=== PATIENT | female | born 1980 | race Caucasian/White ===

== ENCOUNTER 2016-10-13 10:08 | Inpatient (IN) | payer BC ==
[~2016-10-13] VITALS: Ht 167.6 cm; Wt 65.0 kg
[2016-10-13 10:17] VITALS: BP 110/70; PULSE 77; RESP 20; TEMP 97.9; O2SAT 99
[2016-10-13] MEDS ORDERED: SODIUM CHLOR 0.9% 1000 ML INJ 1,000 ML IV SCH ×2 (10:24→10:30)
[2016-10-13] MEDS ORDERED: SODIUM CHLORIDE 0.9% FLUSH 5 ML FLUSH IVF PRN (10:30)
[2016-10-13] MEDS ORDERED: ONDANSETRON HCL 4 MG/2 ML VIAL IVP ONE (10:30)
[2016-10-13] MEDS ORDERED: MORPHINE SULFATE 4 MG/ML INJ IV PUSH ONE (10:30)
--- NOTE | 2016-10-13 10:30 | PD ---
HPI Chief Complaint: GI Complaint Time Seen by Provider: 10:19 Travel History International Travel<30 days: No Contact w/Intl Traveler<30days: No Traveled to known affect area: No History of Present Illness HPI This is a 36-year-old female who presents to the emergency department with 3-4 days of malaise, chills, thinking she had the flu, subsequently developing vomiting, copious diarrhea and lower abdominal pain. She says her pain is severe in the lower abdomen, cramping associated with 10 episodes of watery diarrhea yesterday as well as multiple episodes of vomiting. She did have a bladder stimulator put in 9 days ago at [facility]. She denies any dysuria, frequency or urgency and feels like her bladder stimulator is working well. She denies any other abdominal surgeries. 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 Normocephalic. EYES: Pupils equal and round. No injection or drainage. ENT: Dry mucous membranes NECK: Trachea midline. CARDIOVASCULAR: Regular rate and rhythm. No murmur appreciated. RESPIRATORY: Clear to auscultation. Breath sounds equal bilaterally. GASTROINTESTINAL: Abdomen soft, tender to palpation in the lower abdomen with some guarding in the right lower quadrant and suprapubic region. MUSCULOSKELETAL: No obvious deformities. NEUROLOGICAL: Awake and alert. No obvious cranial nerve deficits. Moving all extremities. PSYCHIATRIC: Appropriate mood and affect; insight and judgment normal. Data Data Last Documented VS Vital Signs Date Time Temp Pulse Resp B/P Pulse Ox O2 Delivery O2 Flow Rate FiO2 10/13/16 10:50 20 10/13/16 10:17 97.9 77 110/70 99 Orders Complete Blood Count With Diff (10/13/16 10:24) Comprehensive Metabolic Panel (10/13/16 10:24) Lipase (10/13/16 10:24) Urinalysis - C+S If Indicated (10/13/16 10:24) Ct Abd/Pel W Iv Contrast(Rout) (10/13/16 10:24) Iv Access Insert/Monitor (10/13/16 10:24) Ecg Monitoring (10/13/16 10:24) Oximetry (10/13/16 10:24) Ondansetron Inj (Zofran Inj) (10/13/16 10:30) Sodium Chlor 0.9% 1000 Ml Inj (Ns 1000 M (10/13/16 10:24) Sodium Chloride 0.9% Flush (Ns Flush) (10/13/16 10:30) Ed Urine Pregnancytest Poc (10/13/16 10:24) Sodium Chlor 0.9% 1000 Ml Inj (Ns 1000 M (10/13/16 10:30) Morphine Inj (Morphine Inj) (10/13/16 10:30) Iohexol 350 Inj (Omnipaque 350 Inj) (10/13/16 11:19) Ciprofloxacin 400 Mg Premix (Cipro 400 M (10/13/16 12:00) Metronidazole 500 Mg Inj (Flagyl 500 Mg (10/13/16 12:00) Lactic Acid (10/13/16 11:54) Blood Culture (10/13/16 11:54) Consult General Surgery (10/13/16 ) Admit Order (Ed Use Only) (10/13/16 13:18) Labs Laboratory Tests Test 10/13/16 10/13/16 10/13/16 10:40 11:30 12:25 White Blood Count 17.2 TH/MM3 Red Blood Count 4.23 MIL/MM3 Hemoglobin 12.8 GM/DL Hematocrit 38.2 % Mean Corpuscular Volume 90.1 FL Mean Corpuscular Hemoglobin 30.3 PG Mean Corpuscular Hemoglobin 33.6 % Concent Red Cell Distribution Width 12.5 % Platelet Count 237 TH/MM3 Mean Platelet Volume 8.6 FL Neutrophils (%) (Auto) 79.7 % Lymphocytes (%) (Auto) 12.6 % Monocytes (%) (Auto) 5.8 % Eosinophils (%) (Auto) 1.7 % Basophils (%) (Auto) 0.2 % Neutrophils # (Auto) 13.7 TH/MM3 Lymphocytes # (Auto) 2.2 TH/MM3 Monocytes # (Auto) 1.0 TH/MM3 Eosinophils # (Auto) 0.3 TH/MM3 Basophils # (Auto) 0.0 TH/MM3 CBC Comment DIFF FINAL Differential Comment Sodium Level 137 MEQ/L Potassium Level 4.1 MEQ/L Chloride Level 105 MEQ/L Carbon Dioxide Level 24.9 MEQ/L Anion Gap 7 MEQ/L Blood Urea Nitrogen 9 MG/DL Creatinine 0.67 MG/DL Estimat Glomerular Filtration 99 ML/MIN Rate Random Glucose 106 MG/DL Calcium Level 8.0 MG/DL Total Bilirubin 0.3 MG/DL Aspartate Amino Transf 24 U/L (AST/SGOT) Alanine Aminotransferase 38 U/L (ALT/SGPT) Alkaline Phosphatase 51 U/L Total Protein 6.2 GM/DL Albumin 3.1 GM/DL Lipase 64 U/L Urine Color LIGHT-YELLOW Urine Turbidity CLEAR Urine pH 6.0 Urine Specific [place] 1.027 Urine Protein NEG mg/dL Urine Glucose (UA) NEG mg/dL Urine Ketones NEG mg/dL Urine Occult Blood NEG Urine Nitrite NEG Urine Bilirubin NEG Urine Urobilinogen LESS THAN 2.0 MG/DL Urine Leukocyte Esterase NEG Urine RBC LESS THAN 1 /hpf Microscopic Urinalysis Comment CULT NOT INDICATED Lactic Acid Level 3.4 mmol/L MDM Medical Decision Making Medical Screen Exam Complete: Yes Emergency Medical Condition: Yes Interpretation(s) Afebrile, no tachycardia, normotensive Leukocytosis with left shift Electrolytes within normal limits Lactic acid 3.4 Urinalysis: No infection Last 24 hours Impressions Abdomen/Pelvis CT 10/13/16 1024 Signed Impressions: Service Date/Time: Thursday, October 13, 2016 11:12 - CONCLUSION: Non-definitive CT findings in the right lower quadrant. The appendix does appear to be mildly dilated. The patient also has a right ovarian cyst. Minimal nonspecific free pelvic fluid. Quincy Cain MD Differential Diagnosis Colitis, diverticulitis, gastroenteritis, appendicitis, cholecystitis Narrative Course This is a 36-year-old female who presents to the emergency department with nausea vomiting and diarrhea. She was ill appearing upon arrival, with dry mucous membranes and an initial low blood pressure at triage. She was placed on a monitor and an IV was established. She was given 2 L of IV hydration. She had a white count of 17 and was given IV Cipro and Flagyl. She did recently have a bladder stimulator placed but it seems her symptoms are unrelated as her urinalysis is normal and CT is negative for any sort of surgical abscess or complication. CT did demonstrate a mildly dilated appendix. She is tender in the right lower quadrant but is also tender in the suprapubic region and left lower quadrant more consistent with a colitis or gastroenteritis. Patient has been having copious diarrhea which makes a think this is more likely infectious then appendicitis. I did contact Dr. Bustamante on- call for general surgery and he agrees to see the patient in consultation. I think the patient should be admitted to the residents for serial abdominal exams and continued IV antibiotics. Physician Communication Physician Communication Discussed with Dr. Null and Dr. Bustamante's team Diagnosis Primary Impression: Diarrhea Qualified Code: R19.7 - Diarrhea, unspecified type Additional Impression: Sepsis Qualified Code: A41.9 - Sepsis, due to unspecified organism Admitting Information Admitting Physician Requests: Admit Scripts Ondansetron Odt (Zofran Odt)4 Mg Tab4 Mg SL Q6HR PRN (Nausea/Vomiting) #15 TAB Prov:Emilia Hunt MD 10/13/16 Emilia Hunt MD Oct 13, 2016 10:30
[2016-10-13 11:00] LABS: AUTOMATED NEUTROPHIL # 13.7 TH/MM3 (1.8-7.7); BASOPHIL % 0.2 % (0.0-2.0); EOSINOPHIL # 0.3 TH/MM3 (0-0.4); EOSINOPHIL % 1.7 % (0.0-4.0); HEMATOCRIT 38.2 % (35.0-46.0); HEMO FLAGS DIFF FINAL; LYMPH % 12.6 % (9.0-44.0); LYMPHOCYTE # 2.2 TH/MM3 (1.0-4.8); MEAN CELL VOLUME 90.1 FL (80.0-100.0); MEAN CORPUSCULAR HEMOGLOBIN 30.3 PG (27.0-34.0); MEAN CORPUSCULAR HGB CONC 33.6 % (32.0-36.0); MONO % 5.8 % (0.0-8.0); NEUT % 79.7 % (16.0-70.0); PLATELET COUNT 237 TH/MM3 (150-450); RED BLOOD COUNT 4.23 MIL/MM3 (4.00-5.30); RED CELL DISTRIBUTION WIDTH 12.5 % (11.6-17.2); WHITE BLOOD COUNT 17.2 TH/MM3 (4.0-11.0)
[2016-10-13] MEDS ORDERED: IOHEXOL 350 MG/ML 10 ML VIAL (for RAD DIAG) IV ONE (11:19)
--- NOTE | 2016-10-13 11:45 | RADRPT ---
EXAM DATE/TIME: 10/13/2016 11:12 [place] COMPARISON: No previous studies available for comparison. INDICATIONS : Abdominal pain, malaise, vomiting and diarrhea. IV CONTRAST: 95 cc Omnipaque 350 (iohexol) IV ORAL CONTRAST: No oral contrast ingested. RADIATION DOSE: 9.96 CTDIvol (mGy) MEDICAL HISTORY : Uterine prolapse. SURGICAL HISTORY : Bladder stimulator placed 09/24. ENCOUNTER: Initial ACUITY: 1 day PAIN SCALE: 6/10 LOCATION: Right lower quadrant TECHNIQUE: Volumetric scanning of the abdomen and pelvis was performed. Using automated exposure control and ad justment of the mA and/or kV according to patient size, radiation dose was kept as low as reasonably achievable to obtain optimal diagnostic quality images. FINDINGS: LOWER LUNGS: The visualized lower lungs are clear. LIVER: Homogeneous density without lesion. There is no dilation of the biliary tree. No calcified gallston es. SPLEEN: Small splenule adjacent to the inferior aspect of the spleen. PANCREAS: Within normal limits. KIDNEYS: Tiny cyst in the apex of the left kidney. No hydronephrosis or stone ADRENAL GLANDS: Within normal limits. VASCULAR: There is no aortic aneurysm. BOWEL/MESENTERY: The appendix does appear to mildly dilated measuring about 10 mm in diameter. The bowel is otherwise focally unremarkable. ABDOMINAL WALL: Within normal limits. RETROPERITONEUM: There is no lymphadenopathy. BLADDER: No wall thickening or mass. REPRODUCTIVE: 2.7 cm right ovarian cyst. Minimal nonspecific free pelvic fluid. INGUINAL: There is no lymphadenopathy or hernia. MUSCULOSKELETAL: Within normal limits for patient age. There is a stimulator apparatus in the pelvis with control pack overlying the right iliac region. CONCLUSION: Non-definitive CT findings in the right lower quadrant. The appendix does appear to be mildly dilated . The patient also has a right ovarian cyst. Minimal nonspecific free pelvic fluid. Quincy Cain MD on October 13, 2016 at 11:33 Board Certified Radiologist. This report was verified electronically.
[2016-10-13] MEDS ORDERED: metroNIDAZOLE 500 MG INJ 100 ML IV ONE (12:00)
[2016-10-13] MEDS ORDERED: CIPROFLOXACIN 400 MG PREMIX 200 ML IV ONE (12:00)
[2016-10-13] MEDS ORDERED: PROPOFOL 200 MG/20 ML AMP IV ONE (12:00)
[2016-10-13] MEDS ORDERED: NEOSTIGMINE 3 MG/3 ML SYR IV ONE (12:00)
[2016-10-13] MEDS ORDERED: ONDANSETRON HCL 4 MG/2 ML VIAL IV PUSH ONE (12:00)
[2016-10-13] MEDS ORDERED: LACTATED RINGER'S 1000 ML INJ 1,000 ML IV ONE (12:00)
[2016-10-13] MEDS ORDERED: PHENYLEPH/NS 1000 MCG/10 ML SYR IV ONE (12:00)
[2016-10-13] MEDS ORDERED: ZOFR4TAB3 SL (12:08)
[2016-10-13 12:21] LABS: ALT (GPT) 38 U/L (10-53); ANION GAP 7 MEQ/L (5-15); AST (GOT) 24 U/L (15-37); BICARBONATE 24.9 MEQ/L (21.0-32.0); BLOOD UREA NITROGEN 9 MG/DL (7-18); CHLORIDE 105 MEQ/L (98-107); GLOMERULAR FILTRATION RATE 99 ML/MIN (>89); POTASSIUM 4.1 MEQ/L (3.5-5.1); SODIUM (NA) 137 MEQ/L (136-145)
[2016-10-13 12:23] LABS: ALKALINE PHOSPHATASE 51 U/L (45-117); TOTAL BILIRUBIN ADULT 0.3 MG/DL (0.2-1.0)
[2016-10-13 12:44] LABS: BLOOD, URINE NEG (NEG); GLUCOSE,URINE NEG (NEG); KETONE, URINE NEG (NEG); NITRITE,URINE NEG (NEG); URINE COLOR LIGHT-YELLOW (YELLW/STRAW)
[2016-10-13 12:47] LABS: COMMENT (UR) CULT NOT INDICATED; CULTURE IF INDICATED CULT NOT INDICATED
[2016-10-13 13:34] VITALS: BP 109/62; PULSE 106; RESP 20; O2SAT 98
[2016-10-13] MEDS ORDERED: NALOXONE HCL 0.4 MG/ML AMP IV PRN (14:30)
[2016-10-13] MEDS ORDERED: SODIUM CHLORIDE 0.9% FLUSH 5 ML FLUSH FLUSH PRN (14:30)
[2016-10-13 14:46] VITALS: BP 115/68; PULSE 115; RESP 20; O2SAT 98
--- NOTE | 2016-10-13 14:48 | HHI.HP ---
HPI Service Family Medicine Primary Care Physician No Primary Care Physician Admission Diagnosis diarrhea Diagnoses: International Travel<30 Days: No Contact w/Intl Traveler<30days: No Known Affected Area: No History of Present Illness 36-year-old female with a past medical history significant for bladder stimulator placement on 10/05 and a history of Cryptosporidium and Giardia presents to the emergency department with a 2 day history of nausea and frequent stools. The patient states that yesterday she began having sharp, stabbing pains diffusely throughout her abdomen was accompanied by mildly loose and frequent stools resulting in approximately 10 bowel movements yesterday. She also states that she had emesis 4 times. She denies fever but does endorse chills. The patient states that approximately 4 days ago she felt as though she had a cold with runny nose and a cough. CT of the abdomen and pelvis in the emergency department showed a mildly dilated appendix. On exam, the patient was found to have rebound tenderness. White blood cell count 17.2, lactic acid 3.4. Of note, the patient moved from [facility] in March of this year. (Ruchi Null MD R3) Review of Systems Other Endorses chills, denies any fever Denies blurry vision, otorrhea, rhinorrhea Denies sore throat and cough No chest pain, palpitations, shortness of breath Abdominal pain. 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 Baires at [facility] on 10/05 Thyroglossal cyst removal at age 2 Reported Medications Reported Meds & Active Scripts Active Zofran Odt (Ondansetron Odt) 4 Mg Tab 4 Mg SL Q6HR PRN (Ruchi Null MD R3) Allergies: Coded Allergies: Ancef (Verified Allergy, Severe, Hives, 10/13/16) Sulfa (Verified Allergy, Severe, Hives, 10/13/16) Cephalosporins (Verified Allergy, Unknown, 10/13/16) Family History Father with hypertension and hyperlipidemia. Mother with a thyroid issue. Social History Occasional alcohol. Never smoker. Denies marijuana and other illicit drugs. ( Ruchi Null MD R3) Physical Exam Vital Signs Vital Signs Date Time Temp Pulse Resp B/P Pulse Ox O2 Delivery O2 Flow Rate FiO2 10/13/16 13:34 106 20 109/62 98 Room Air 10/13/16 10:50 20 10/13/16 10:17 97.9 77 20 110/70 99 Physical Exam Gen.: No acute distress Head: Normocephalic. Atraumatic. EENT: Pupils equal round and reactive to light. Nose without drainage. Airway intact. Throat without injection. Cardiovascular: Regular rate and rhythm. No murmurs, rubs or gallops. Respiratory: Lungs clear to auscultation bilaterally. No wheezes or rhonchi. Abdomen: Soft, nondistended. Extremely tender to palpation in the lower quadrants. Positive rebound tenderness. Musculoskeletal: No gross deformities. No edema. Skin: No obvious rashes or erythema. Neuro: Sensory and motor grossly intact. Cranial nerves II through XII grossly intact. Psych: Appropriate mood and affect Laboratory Laboratory Tests Test 10/13/16 10/13/16 10/13/16 10:40 11:30 12:25 White Blood Count 17.2 Red Blood Count 4.23 Hemoglobin 12.8 Hematocrit 38.2 Mean Corpuscular Volume 90.1 Mean Corpuscular Hemoglobin 30.3 Mean Corpuscular Hemoglobin 33.6 Concent Red Cell Distribution Width 12.5 Platelet Count 237 Mean Platelet Volume 8.6 Neutrophils (%) (Auto) 79.7 Lymphocytes (%) (Auto) 12.6 Monocytes (%) (Auto) 5.8 Eosinophils (%) (Auto) 1.7 Basophils (%) (Auto) 0.2 Neutrophils # (Auto) 13.7 Lymphocytes # (Auto) 2.2 Monocytes # (Auto) 1.0 Eosinophils # (Auto) 0.3 Basophils # (Auto) 0.0 CBC Comment DIFF FINAL Differential Comment Sodium Level 137 Potassium Level 4.1 Chloride Level 105 Carbon Dioxide Level 24.9 Anion Gap 7 Blood Urea Nitrogen 9 Creatinine 0.67 Estimat Glomerular Filtration 99 Rate Random Glucose 106 Calcium Level 8.0 Total Bilirubin 0.3 Aspartate Amino Transf 24 (AST/SGOT) Alanine Aminotransferase 38 (ALT/SGPT) Alkaline Phosphatase 51 Total Protein 6.2 Albumin 3.1 Lipase 64 Urine Color LIGHT-YELLOW Urine Turbidity CLEAR Urine pH 6.0 Urine Specific [place] 1.027 Urine Protein NEG Urine Glucose (UA) NEG Urine Ketones NEG Urine Occult Blood NEG Urine Nitrite NEG Urine Bilirubin NEG Urine Urobilinogen LESS THAN 2.0 Urine Leukocyte Esterase NEG Urine RBC LESS THAN 1 Microscopic Urinalysis Comment CULT NOT INDICATED Lactic Acid Level 3.4 Date/Time Procedure Status Source Growth 10/13/16 12:10 Aerobic Blood Culture Received Blood Peripheral Pending 10/13/16 12:10 Anaerobic Blood Culture Received Blood Peripheral Pending (Ruchi Null MD R3) Result Diagram: 10/13/16 1040 10/13/16 1130 Assessment and Plan Assessment and Plan 36-year-old female with bladder stimulator implantation 8 days ago presents to the emergency department with a 2 day history of abdominal pain, emesis and frequent mildly loose stools. 1. Sepsis. Patient tachycardic to 106 with a white blood cell count of 17.2. Lactic acid 3.4. Differential diagnosis: Appendicitis, gastroenteritis, postoperative infection versus colitis. Aggressive fluid hydration. Patient received 2 L normal saline in the ED, continue at 100 cc/hour Antibiotics as documented below Trend lactic acid Blood cultures pending 2. Abdominal pain with frequent loose stools and emesis Patient may have infectious colitis as she has a history of Cryptosporidium and giardiasis Appendicitis remains in the differential as patient had a mildly dilated appendix on CT scan and rebound tenderness on physical exam. General surgery consulted, appreciate their recommendations. Cipro/Flagyl (10/13) Stool studies pending including C. difficile, cryptosporidium, Giardia and ova and parasites Morphine for pain control 3. Postoperative from bladder stimulator placement 8 days ago. Patient states she feels her stimulator is working well and she is not having any difficulties with urination. Simulator was placed by Dr. Baires at [facility]. Possible infection secondary to bladder stimulator placement however patient's incision is clean/dry/intact and appears to be well-healing. Urinalysis within normal limits 4. FEN Normal saline at 100 cc/hour Diet: Nothing by mouth until cleared by general surgery Electrolytes: replete when necessary DVT prophylaxis: SCDs until confirmed the patient is not surgical candidate Code Status Full code (Ruchi Null MD R3) Attending Attestation The patient has been seen and examined. The chart and all resident notes have been reviewed. I agree that inpatient care is appropriate and that a two midnight stay is expected for the reasons documented in the resident history and physical. I have discussed this with the resident and certify the resident s order for inpatient admission. (Marybeth Herndon MD) Problem List: (1) Sepsis Status: Acute (2) Emesis Status: Acute (3) Abdominal pain Status: Acute (4) Loose stools Status: Acute (Ruchi Null MD R3) Physician Certification 2 Midnight Certification Type: Admission for Inpatient Services Order for Inpatient Services The services are ordered in accordance with Medicare regulations or non- Medicare payer requirements, as applicable. In the case of services not specified as inpatient-only, they are appropriately provided as inpatient services in accordance with the 2-midnight benchmark. Estimated LOS (days): 2 2 days is the estimated time the patient will need to remain in the hospital, assuming treatment plan goals are met and no additional complications. Post-Hospital Plan: Home (Ruchi Null MD R3) Problem Qualifiers (1) Sepsis: Qualified Code: A41.9 - Sepsis, due to unspecified organism Ruchi Null MD R3 Oct 13, 2016 14:48 Marybeth Herndon MD Oct 14, 2016 15:45
[2016-10-13 15:11] VITALS: TEMP 101.5
[2016-10-13] MEDS: SODIUM CHLOR 0.9% 1000 ML INJ 1,000 ML IV SCH ×2 (15:13→18:14)
[2016-10-13] MEDS: ONDANSETRON HCL 4 MG/2 ML VIAL IVP PRN (15:16)
--- NOTE | 2016-10-13 16:15 | HHI.PR ---
Immediate Post Op Note Procedure Date: Oct 13, 2016 Pre Op Diagnosis: acute appendicitis Post Op Diagnosis: same, with perforation Surgeon: Chris Bustamante MD Db2 Dba(s): see or sheet Procedure: laparoscopic partial cecectomy, lap appy Findings: distended appendix, perforation at base, purulent fluid Complications: none Specimen(s) removed: appendix Estimated blood loss: 5cc Anesthesia: General Drains: None, KELLY (right lower quadrant) Patient to: PACU Patient Condition: Good Chris Bustamante MD Oct 13, 2016 16:15
[2016-10-13] MEDS ORDERED: BUPIVACAINE/EPINEPHRINE 0.5% PF 10 ML VIAL INFIL ONE (16:33)
[2016-10-13] MEDS ORDERED: DO NOT ADM ANY ANTICOAGULANT DRUGS XX PRN (17:36)
[2016-10-13] MEDS ORDERED: ACETAMINOPHEN 1000 MG/100 ML VIAL IV ONE (17:40)
[2016-10-13] MEDS ORDERED: MIDAZOLAM HCL 2 MG/2 ML VIAL ONE (17:47)
[2016-10-13] MEDS ORDERED: fentaNYL CITRATE 250 MCG/5 ML AMP ONE (17:47)
[2016-10-13] MEDS: KETOROLAC TROMETHAMINE 30 MG/ML (IVP) VIAL IV PUSH SCH (18:00)
[2016-10-13] MEDS: metroNIDAZOLE 500 MG INJ 100 ML IV SCH (19:52)
[2016-10-13] MEDS: SODIUM CHLORIDE 0.9% FLUSH 5 ML FLUSH FLUSH SCH (19:52)
[2016-10-13 20:00] VITALS: BP 95/51; PULSE 97; RESP 16; TEMP 99.4; O2SAT 94
[2016-10-13] MEDS: MORPHINE SULFATE 4 MG/ML INJ IV PUSH PRN (21:13)
--- NOTE | 2016-10-13 21:32 | MP ---
cc: ABDIRAHMAN BUSTAMANTE MD DATE OF SURGERY: 10/13/2016 PREOPERATIVE DIAGNOSIS: Acute appendicitis. POSTOPERATIVE DIAGNOSIS: Acute perforated appendicitis. PROCEDURE PERFORMED: 1. Partial cecectomy 2. Laparoscopic appendectomy. SURGEON Dr. Abdirahman Bustamante MILL TURNER: See OR sheet. ANESTHESIA: GETA. IV FLUIDS See anesthesia sheet. ESTIMATED BLOOD LOSS: 5 cc. DRAINS: 10 Canadian Jamel drain. SPECIMEN: Appendix. COMPLICATIONS: None. WOUND CLASSIFICATION 30. FINDINGS: Distended appendix with perforation at appendiceal base, purulent fluid. INDICATIONS: The patient is a 36-year-old female who presents with acute onset of right lower quadrant abdominal pain. Pain started approximately 24 hours ago, was initially periumbilical and located and migrated to the right lower quadrant. The patient has had episodes of bacterial diarrhea in the past. She states it is somewhat different than those episodes and again complains of significant abdominal pain. CT scan showed thickened appendix with a minimal amount of fluid in the abdomen. Therefore, decision was made for laparoscopic appendectomy. DETAILS OF PROCEDURE: The patient is taken to the operating suite, placed in supine position. She was prepped and draped in the usual sterile fashion after general endotracheal anesthesia. Brief time-out was done, stating correct patient, procedure, and surgical site. We were all in agreement with this. Attention was first directed to the umbilicus where a stab sadiq incision was made. Veress needle was introduced, insufflated the abdomen to 15 millimeter pneumoperitoneum. Next the Veress needle was entered. Abdominal placement was confirmed with saline drop test. A 5 millimeter trocar placed under direct vision. Inspection revealed no evidence of injury. There was noted to be purulent fluid in the pericolic gutter and pelvis. Two other ports placed, one 12 millimeter in the left lower quadrant port and supraumbilical 5-mm port. The patient then placed in Trendelenburg. Attention directed to the right lower quadrant. The appendix was noted to be significantly distended and inflamed with purulent fluid. On inspection there was noted to be a perforation at the appendiceal base. There were several adhesions around the appendix. The appendix was mobilized. The base was observed, identified and [place] was used to dissect through the mesoappendix. The perforation was at the appendiceal cecal base. Therefore decision was made to take a small portion of the cecum in order to get an adequate margin around the perforation and completely seal the cecum. This was done with an Endo-BIRD blue load 45 stapler x2. The mesoappendix was obtained and the mesoappendix was then transected with a white load 25 Endo-BIRD stapler. Next the appendix was placed in the EndoCatch bag and removed from the abdomen through the left lower quadrant port. The abdomen was then irrigated thoroughly with several liters of normal saline. This was done until the effluent was clear. Next a 10 [place] Jamel drain was placed in the suprapubic port site. This was secured with a 2-0 nylon. The abdomen was then desufflated. The left lower quadrant 12 millimeter trocar was closed with 0 Vicryl suture. Following this, 4-0 Monocryl was used at all port sites including the umbilicus and the left lower quadrant port site. Sterile dressings were placed. The patient tolerated the procedure well. There was no intraoperative complications. The patient was x-rayed, taken stable to Post-Anesthesia Care Unit. All lap and instrument counts were correct at the end of the procedure. MD ANNA Campos/LISSET /9:02 PM /9:16 PM
--- NOTE | 2016-10-13 21:42 | MB ---
cc: ABDIRAHMAN CADENA MD DATE OF CONSULTATION 10/13/16 REASON FOR CONSULTATION Acute appendicitis. HISTORY OF PRESENT ILLNESS The patient is a 36-year-old female who presents with complaints of right lower quadrant abdominal pain. She states that pain started approximately 24 to 48 hours ago when she first noticed it around her umbilicus and it migrated to right lower quadrant. She states the pain is a stabbing pain. It was initially a 7/10 and it is now a 5/10 with radiation in the right lower quadrant, worse with movement, better with lying still. She also had associated diarrhea, approximately 10 bowel movements yesterday and also had some chills and nausea and vomiting times four. She came to the emergency department for further work-up including CT scan showing a thickened appendicitis along with WBC count of 17. Therefore, decision was made for operative intervention including laparoscopic appendectomy. Of note, the patient also has history of cryptosporidium, Giardia diarrhea. PAST MEDICAL HISTORY 1. Bladder stimulator for incontinence. 2. Urinary retention. 3. Asthma. 4. Anemia. 5. Uterine prolapse. 6. Fibroids. 7. Cryptosporidium, Giardia. PAST SURGICAL HISTORY 1. InterStim bladder stimulator. 2. Thyroglossal duct cyst removal. MEDICATIONS Please see EMR. ALLERGIES ANCEF, SULFA, CEPHALOSPORIN. FAMILY HISTORY Father with hypertension, hyperlipidemia. Mother with thyroid disease. SOCIAL HISTORY Occasional ETOH. Denies smoking or IVDA. REVIEW OF SYSTEMS GENERAL: The patient complained of chills. Denies fevers. HEENT: Denies eye pain, ear pain. CARDIOVASCULAR: Denies palpitations, chest pain. RESPIRATORY: Denies cough or wheeze. GASTROINTESTINAL: Complained of nausea and vomiting and abdominal pain. MUSCULOSKELETAL: Denies arthritis, myalgias. SKIN: Integument denies rashes or lesions. NEUROLOGIC: Denies headaches or neuro changes. PSYCH: Denies change in affect or mood. GENITOURINARY: Denies dysuria or hematuria. PHYSICAL EXAMINATION GENERAL: No acute distress. VITAL SIGNS: Temperature 100.1, pulse 79, respirations 14, blood pressure 112/72, 98% on 2 liters. HEENT: PERRLA. Extraocular movements intact. NECK: Supple. Trachea midline. HEART: S1, S2, regular rate and rhythm. LUNGS: Clear to auscultation bilaterally. Bilateral expansion. ABDOMEN: Positive tenderness to palpation. Positive rebound right lower quadrant. Nondistended. Healed recent incisional scar to right buttock where bladder stimulator is. EXTREMITIES: No edema. Moving all extremities. Warm and well-perfused. BACK: Nontender. NEUROLOGIC: GCS of 15. No numbness. PSYCH: Normal affect. Good judgment. LABORATORY DIAGNOSTIC DATA WBC 17.2, hemoglobin 12.8, hematocrit 38.2, platelets 237. Sodium 137, potassium 4.1, chloride 105, BUN 9, creatinine 0.67, glucose 106, lactic 3.4, total bilirubin 0.3, AST 24, ALT 38, alkaline phosphatase 51, lipase 64. IMAGING Reviewed by myself. Distended appendix, mildly dilated. Right ovarian cyst. Minimal pelvic fluid. ASSESSMENT The patient with a concern for acute appendicitis given radiologic and clinical data. PLAN We will continue IV antibiotics, NPO, pain control. The patient will need operative intervention including laparoscopic appendectomy, possible open and all other indicated procedures. This was discussed with patient in detail. The patient states she agreed and would like to proceed with the operative intervention. This was again discussed and the patient had full understanding. MD ANNA Campos/YUSEF /9:09 PM /9:18 PM
[2016-10-13 23:36] VITALS: BP 96/55; PULSE 87; RESP 16; TEMP 98.2; O2SAT 96
[2016-10-14] MEDS: KETOROLAC TROMETHAMINE 30 MG/ML (IVP) VIAL IV PUSH SCH ×5 (00:10→23:32)
[2016-10-14] MEDS: CIPROFLOXACIN 400 MG PREMIX 200 ML IV SCH ×3 (00:11→23:32)
[2016-10-14] MEDS: metroNIDAZOLE 500 MG INJ 100 ML IV SCH ×4 (02:08→19:34)
[2016-10-14 04:51] VITALS: BP 95/54; PULSE 77; RESP 16; TEMP 97.1; O2SAT 94
[2016-10-14] MEDS: MORPHINE SULFATE 4 MG/ML INJ IV PUSH PRN ×2 (05:41→08:56)
[2016-10-14 05:52] LABS: AUTOMATED NEUTROPHIL # 9.9 TH/MM3 (1.8-7.7); BASOPHIL % 0.2 % (0.0-2.0); EOSINOPHIL # 0.2 TH/MM3 (0-0.4); EOSINOPHIL % 1.3 % (0.0-4.0); HEMATOCRIT 29.6 % (35.0-46.0); HEMO FLAGS DIFF FINAL; LYMPH % 11.4 % (9.0-44.0); LYMPHOCYTE # 1.4 TH/MM3 (1.0-4.8); MEAN CELL VOLUME 91.5 FL (80.0-100.0); MEAN CORPUSCULAR HGB CONC 32.8 % (32.0-36.0); MONO % 5.4 % (0.0-8.0); NEUT % 81.7 % (16.0-70.0); PLATELET COUNT 133 TH/MM3 (150-450); RED BLOOD COUNT 3.24 MIL/MM3 (4.00-5.30); RED CELL DISTRIBUTION WIDTH 12.9 % (11.6-17.2); WHITE BLOOD COUNT 12.1 TH/MM3 (4.0-11.0)
[2016-10-14 06:11] LABS: BICARBONATE 26.4 MEQ/L (21.0-32.0); CALCIUM-PROTEIN CORRECTED 8.5 MG/DL (8.5-10.1); POTASSIUM 3.5 MEQ/L (3.5-5.1); TOTAL BILIRUBIN ADULT 0.5 MG/DL (0.2-1.0)
--- NOTE | 2016-10-14 07:48 | HHI.PR ---
Subjective Subjective Notes no acute issues, still with pain but feels much better Objective Vitals/I&O Vital Signs Date Time Temp Pulse Resp B/P Pulse Ox O2 Delivery O2 Flow Rate FiO2 10/14/16 04:51 97.1 77 16 95/54 94 10/13/16 18:35 Nasal Cannula 2 Labs Laboratory Tests Test 10/13/16 10/13/16 10/13/16 10/14/16 10:40 11:30 12:25 05:35 White Blood Count 17.2 12.1 Red Blood Count 4.23 3.24 Hemoglobin 12.8 9.7 Hematocrit 38.2 29.6 Mean Corpuscular Volume 90.1 91.5 Mean Corpuscular Hemoglobin 30.3 30.0 Mean Corpuscular Hemoglobin 33.6 32.8 Concent Red Cell Distribution Width 12.5 12.9 Platelet Count 237 133 Mean Platelet Volume 8.6 8.1 Neutrophils (%) (Auto) 79.7 81.7 Lymphocytes (%) (Auto) 12.6 11.4 Monocytes (%) (Auto) 5.8 5.4 Eosinophils (%) (Auto) 1.7 1.3 Basophils (%) (Auto) 0.2 0.2 Neutrophils # (Auto) 13.7 9.9 Lymphocytes # (Auto) 2.2 1.4 Monocytes # (Auto) 1.0 0.7 Eosinophils # (Auto) 0.3 0.2 Basophils # (Auto) 0.0 0.0 CBC Comment DIFF FINAL DIFF FINAL Differential Comment Sodium Level 137 141 Potassium Level 4.1 3.5 Chloride Level 105 106 Carbon Dioxide Level 24.9 26.4 Anion Gap 7 9 Blood Urea Nitrogen 9 10 Creatinine 0.67 0.62 Estimat Glomerular Filtration 99 108 Rate Random Glucose 106 101 Calcium Level 8.0 7.4 Total Bilirubin 0.3 0.5 Aspartate Amino Transf 24 14 (AST/SGOT) Alanine Aminotransferase 38 28 (ALT/SGPT) Alkaline Phosphatase 51 41 Total Protein 6.2 5.2 Albumin 3.1 2.4 Lipase 64 Urine Color LIGHT-YELLOW Urine Turbidity CLEAR Urine pH 6.0 Urine Specific [place] 1.027 Urine Protein NEG Urine Glucose (UA) NEG Urine Ketones NEG Urine Occult Blood NEG Urine Nitrite NEG Urine Bilirubin NEG Urine Urobilinogen LESS THAN 2.0 Urine Leukocyte Esterase NEG Urine RBC LESS THAN 1 Microscopic Urinalysis Comment CULT NOT INDICATED Lactic Acid Level 3.4 1.2 Protein Corrected Calcium 8.5 Date/Time Procedure Status Source Growth 10/13/16 12:10 Aerobic Blood Culture Received Blood Peripheral Pending 10/13/16 12:10 Anaerobic Blood Culture Received Blood Peripheral Pending Cardiovascular: Regular Lungs: Clear Abdomen: Other (+ttp, no rebound, incisions c/d/i, KELLY serosang) A/P Assessment and Plan POD 1 Perf lap appy PLAN Clears oob is abx pain control d/c Chris West MD Oct 14, 2016 07:48
[2016-10-14 08:00] VITALS: BP_SYST 100; BP_SYST 90; BP_DIAS 54; BP_DIAS 58; PULSE 78; RESP 16; TEMP 97.8; O2SAT 97
[2016-10-14] MEDS: SODIUM CHLORIDE 0.9% FLUSH 5 ML FLUSH FLUSH SCH ×2 (08:15→19:34)
--- NOTE | 2016-10-14 08:19 | HHI.FPPN ---
Subjective Subjective Patient seen and examined with the resident team. Case reviewed and discussed Please refer to resident H&P for further details regarding HPI, ROS, PMH, SurgHx , Fh and SocHx In summary, patient is a 36yoF presenting with acute abdominal pain. CT imaging in the ED demonstrated inflammation of the appendix Patient is seen in her hospital bed this am POD 1 s/p laparoscopic appendectomy. She reports feeling better today, eager to drink CLD. [facility] [[email or web address]] Objective Objective Last Impressions Chest X-Ray 10/14/16 0000 Signed Impressions: Service Date/Time: October 09:01 - CONCLUSION: Minimal left base parenchymal opacity. Quincy Cain MD Abdomen/Pelvis CT 10/13/16 1024 Signed Impressions: Service Date/Time: Thursday, October 13, 2016 11:12 - CONCLUSION: Non-definitive CT findings in the right lower quadrant. The appendix does appear to be mildly dilated. The patient also has a right ovarian cyst. Minimal nonspecific free pelvic fluid. Quincy Cain MD Laboratory Tests - Abnormals Test 10/13/16 10/13/16 10/13/16 10/14/16 10:40 11:30 12:25 05:35 White Blood Count 17.2 TH/MM3 12.1 TH/MM3 Neutrophils (%) (Auto) 79.7 % 81.7 % Neutrophils # (Auto) 13.7 TH/MM3 9.9 TH/MM3 Monocytes # (Auto) 1.0 TH/MM3 Calcium Level 8.0 MG/DL 7.4 MG/DL Total Protein 6.2 GM/DL 5.2 GM/DL Albumin 3.1 GM/DL 2.4 GM/DL Lipase 64 U/L Lactic Acid Level 3.4 mmol/L Red Blood Count 3.24 MIL/MM3 Hemoglobin 9.7 GM/DL Hematocrit 29.6 % Platelet Count 133 TH/MM3 Aspartate Amino Transf 14 U/L (AST/SGOT) Alkaline Phosphatase 41 U/L Vital Signs 10/13/16 10/13/16 10/13/16 10/13/16 10:17 10:50 13:34 14:46 Temp 97.9 Pulse 77 106 115 Resp 20 20 20 20 B/P 110/70 109/62 115/68 Pulse Ox 99 98 98 O2 Delivery Room Air Room Air 10/13/16 10/13/16 10/13/16/4/17 15:11 17:37 17:45 18:00 Temp 101.5 100.1 Pulse 99 85 87 Resp 14 15 16 B/P 112/72 121/67 116/60 Pulse Ox 98 99 98 O2 Delivery Nasal Cannula Nasal Cannula Nasal Cannula O2 Flow Rate 2 2 2 10/13/16 10/13/16 10/13/16 10/13/16 18:15 18:35 20:00 23:36 Temp 98.8 99.4 98.2 Pulse 92 96 97 87 Resp 17 17 16 16 B/P 110/56 112/55 95/51 96/55 Pulse Ox 97 97 94 96 O2 Delivery Nasal Cannula Nasal Cannula O2 Flow Rate 2 2 10/14/16 04:51 Temp 97.1 Pulse 77 Resp 16 B/P 95/54 Pulse Ox 94 INTAKE & OUTPUT 10/14/16 07:00 Intake Total 2755 ml Output Total 1010 ml Balance 1745 ml Physical exam GENERAL: Pleasant female, NAD, wdwn resting in bed SKIN: Warm and dry. No rashes HEAD: Normocephalic. AT EYES: No scleral icterus. No injection or drainage. ENT: OP clear. MMM NECK: Supple, trachea midline. No JVD or lymphadenopathy. CARDIOVASCULAR: Regular rate and rhythm without audible murmurs, gallops, or rubs. RESPIRATORY: Breath sounds equal and clear to auscultation bilaterally. No accessory muscle use. GASTROINTESTINAL: Abdomen soft, healing laparoscopic incision scars with KELLY drain intact and serosanguineous drainage, nondistended. Hypoactive BS. : Monge intact to gravity. MUSCULOSKELETAL: No cyanosis, or edema. No calf tenderness BACK: Nontender without obvious deformity. No CVA tenderness. NEURO: Awake and alert. Normal speech. CN grossly intact. Assessment Assessment 36yoF admitted with: Acute abdominal pain secondary to acute appendicitis Severe sepsis secondary to appendicitis Leukocytosis Urinary retention Asthma Anemia Uterine prolapse Fibroids History of cryptosporidium in 2013 History of Giardia in 2014 PLAN PLAN IVF resuscitation GS consultation- appreciate recs and operative intervention Lactic acid protocol Empiric antibiotic therapy Blood cultures Resume home meds as appropriate Pain control IS Bowel regimen Lovenox to be initiated post-operatively Patient seen and examined with the resident team. Case reviewed and discussed Agree with plan of care as discussed with me and documented in the resident note. Marybeth Herndon MD Oct 14, 2016 08:19
--- NOTE | 2016-10-14 09:14 | RADRPT ---
EXAM DATE/TIME: 10/14/2016 09:01 [place] COMPARISON: CT ABDOMEN & PELVIS W CONTRAST, October 13, 2016, 11:12. INDICATIONS : Chest pain. MEDICAL HISTORY : None. SURGICAL HISTORY : None. ENCOUNTER: Initial ACUITY: 1 day PAIN SCORE: 5/10 LOCATION: Right chest FINDINGS: There is minimal streaky parenchymal opacity at the left lung base. Right lung appears grossly clear. There slight asymmetric elevation or eventration of right diaphragm. The cardiomediastinal contours are satisfactory. CONCLUSION: Minimal left base parenchymal opacity. Quincy Cain MD on October 14, 2016 at 9:12 Board Certified Radiologist. This report was verified electronically.
--- NOTE | 2016-10-14 10:38 | EKG ---
Date Performed: 10/14/2016 Time Performed: 09:37:54 PTAGE: 36 years EKG: Sinus rhythm POSSIBLE ANTERIOR MYOCARDIAL INFARCTION , PROBABLY OLD BORDERLINE ECG NO PREVIOUS TRACING DOCTOR: Leo Mahoney Interpretating Date/Time 10/14/2016 10:37:16
[2016-10-14 10:59] VITALS: O2SAT 99
[2016-10-14] MEDS: SODIUM CHLOR 0.9% 1000 ML INJ 1,000 ML IV SCH ×2 (11:00→19:34)
[2016-10-14 12:00] VITALS: BP 102/57; PULSE 66; RESP 16; TEMP 96.1; O2SAT 97
[2016-10-14 16:00] VITALS: BP 105/53; PULSE 86; RESP 16; TEMP 97.7; O2SAT 97
[2016-10-14] MEDS: ONDANSETRON HCL 4 MG/2 ML VIAL IVP PRN (16:45)
[2016-10-14] MEDS: LACTOBACILLUS ACIDOPHILUS TAB PO SCH (19:34)
[2016-10-14 20:00] VITALS: BP 119/59; PULSE 94; RESP 21; TEMP 97.3; O2SAT 100
[2016-10-14] MEDS ORDERED: DOCUSATE SODIUM 50 MG/SENNA 8.6 MG TAB PO SCH (21:00)
[2016-10-15] VITALS: BP 108/60; PULSE 99; RESP 20; TEMP 97.2; TEMP 97.3; O2SAT 98
[2016-10-15] MEDS: ONDANSETRON HCL 4 MG/2 ML VIAL IVP PRN ×2 (00:16→08:41)
[2016-10-15] MEDS: metroNIDAZOLE 500 MG INJ 100 ML IV SCH ×3 (01:37→14:31)
[2016-10-15 04:00] VITALS: BP 98/57; PULSE 60; TEMP 96; O2SAT 94
[2016-10-15 05:08] LABS: AUTOMATED NEUTROPHIL # 7.7 TH/MM3 (1.8-7.7); BASOPHIL % 0.1 % (0.0-2.0); EOSINOPHIL # 0.1 TH/MM3 (0-0.4); EOSINOPHIL % 1.3 % (0.0-4.0); HEMATOCRIT 29.9 % (35.0-46.0); HEMO FLAGS DIFF FINAL; LYMPH % 7.8 % (9.0-44.0); LYMPHOCYTE # 0.7 TH/MM3 (1.0-4.8); MEAN CELL VOLUME 90.9 FL (80.0-100.0); MEAN CORPUSCULAR HEMOGLOBIN 30.5 PG (27.0-34.0); MEAN CORPUSCULAR HGB CONC 33.5 % (32.0-36.0); MONO % 5.8 % (0.0-8.0); PLATELET COUNT 138 TH/MM3 (150-450); RED BLOOD COUNT 3.29 MIL/MM3 (4.00-5.30); RED CELL DISTRIBUTION WIDTH 12.8 % (11.6-17.2); WHITE BLOOD COUNT 9.1 TH/MM3 (4.0-11.0)
[2016-10-15] MEDS: KETOROLAC TROMETHAMINE 30 MG/ML (IVP) VIAL IV PUSH SCH ×3 (05:09→17:27)
[2016-10-15] MEDS: SODIUM CHLOR 0.9% 1000 ML INJ 1,000 ML IV SCH ×2 (05:11→17:02)
[2016-10-15 05:38] LABS: ALKALINE PHOSPHATASE 123 U/L (45-117); ALT (GPT) 48 U/L (10-53); ANION GAP 9 MEQ/L (5-15); AST (GOT) 41 U/L (15-37); BICARBONATE 26.4 MEQ/L (21.0-32.0); BLOOD UREA NITROGEN 6 MG/DL (7-18); CHLORIDE 108 MEQ/L (98-107); GLOMERULAR FILTRATION RATE 114 ML/MIN (>89); POTASSIUM 3.2 MEQ/L (3.5-5.1); SODIUM (NA) 143 MEQ/L (136-145); TOTAL BILIRUBIN ADULT 0.3 MG/DL (0.2-1.0)
[2016-10-15] MEDS ORDERED: POTASSIUM CHLORIDE 20 MEQ CONTROLLED RELEASE TAB PO ONE (07:15)
[2016-10-15 08:00] VITALS: BP 111/68; PULSE 90; RESP 17; TEMP 97.1; O2SAT 94
[2016-10-15] MEDS: LACTOBACILLUS ACIDOPHILUS TAB PO SCH (08:41)
[2016-10-15] MEDS: SODIUM CHLORIDE 0.9% FLUSH 5 ML FLUSH FLUSH SCH (08:42)
[2016-10-15 11:51] VITALS: BP 109/68; PULSE 90; RESP 16; TEMP 98.2; O2SAT 96
[2016-10-15] MEDS: CIPROFLOXACIN 400 MG PREMIX 200 ML IV SCH (11:54)
--- NOTE | 2016-10-15 13:50 | HHI.PR ---
Subjective Subjective Notes no issues overnight, pain controlled, mild nausea, oob Objective Vitals/I&O Vital Signs Date Time Temp Pulse Resp B/P Pulse Ox O2 Delivery O2 Flow Rate FiO2 10/15/16 11:51 98.2 90 16 109/68 96 10/14/16 10:59 21 10/13/16 18:35 Nasal Cannula 2 Labs Laboratory Tests Test 10/15/16 04:00 White Blood Count 9.1 Red Blood Count 3.29 Hemoglobin 10.0 Hematocrit 29.9 Mean Corpuscular Volume 90.9 Mean Corpuscular Hemoglobin 30.5 Mean Corpuscular Hemoglobin 33.5 Concent Red Cell Distribution Width 12.8 Platelet Count 138 Mean Platelet Volume 8.8 Neutrophils (%) (Auto) 85.0 Lymphocytes (%) (Auto) 7.8 Monocytes (%) (Auto) 5.8 Eosinophils (%) (Auto) 1.3 Basophils (%) (Auto) 0.1 Neutrophils # (Auto) 7.7 Lymphocytes # (Auto) 0.7 Monocytes # (Auto) 0.5 Eosinophils # (Auto) 0.1 Basophils # (Auto) 0.0 CBC Comment DIFF FINAL Differential Comment Sodium Level 143 Potassium Level 3.2 Chloride Level 108 Carbon Dioxide Level 26.4 Anion Gap 9 Blood Urea Nitrogen 6 Creatinine 0.59 Estimat Glomerular Filtration 114 Rate Random Glucose 116 Calcium Level 7.9 Phosphorus Level 1.3 Magnesium Level 2.0 Total Bilirubin 0.3 Aspartate Amino Transf 41 (AST/SGOT) Alanine Aminotransferase 48 (ALT/SGPT) Alkaline Phosphatase 123 Total Protein 5.7 Albumin 2.4 Date/Time Procedure Status Source Growth 10/15/16 12:55 Cryptosporidium Exam Received Stool Stool Pending 10/15/16 12:55 Stool Pus (SYLVIA) Received Stool Stool Pending 10/15/16 12:55 Giardia Antigen (SYLVIA) Received Stool Stool Pending 10/15/16 12:55 Received Stool Stool Pending 10/13/16 12:10 Aerobic Blood Culture - Preliminary Resulted Blood Peripheral NO GROWTH IN 2 DAYS 10/13/16 12:10 Anaerobic Blood Culture - Preliminary Resulted Blood Peripheral NO GROWTH IN 2 DAYS Cardiovascular: Regular Lungs: Clear Abdomen: Other (mld ttp, no rebound, incisions c/d/i KELLY serosang) A/P Assessment and Plan POD 2 Perf lap appy doing well PLAN advance to reg diet oob is abx pain control ok to d/c home f/u in 1 week d/c KELLY Chris Bobo MD Oct 15, 2016 13:50
[2016-10-15] MEDS ORDERED: METR-1 PO (14:18)
[2016-10-15] MEDS ORDERED: CIPR-9 PO (14:18)
[2016-10-15 14:31] LABS: C. DIFF EPI 027 PRESUMPTIVE NEGATIVE (NEGATIVE); C. DIFF TOXIN PCR NEGATIVE (NEGATIVE)
--- NOTE | 2016-10-15 14:51 | HHI.DCPOC ---
Discharge Care Plan Diagnosis: (1) Appendicitis Goals to Promote Your Health * To prevent worsening of your condition and complications * To maintain your health at the optimal level Directions to Meet Your Goals Take your medications as prescribed Follow your dietary instruction Follow activity as directed Keep your appointments as scheduled Take your immunizations and boosters as scheduled If your symptoms worsen call your PCP, if no PCP go to Urgent Care Center or Emergency Room Smoking is Dangerous to Your Health. Avoid second hand smoke Call the 24-hour hour crisis hotline for domestic abuse at Liban Jang MD R1 Oct 15, 2016 2:51 pm
[2016-10-15] MEDS ORDERED: LEVO500T3 PO (15:11)
[2016-10-15 16:00] VITALS: BP 123/74; PULSE 93; RESP 16; TEMP 98.7; O2SAT 99
--- NOTE | 2016-10-15 17:39 | HHI.DS ---
Discharge Summary Admission Date Oct 13, 2016 at 1:22 pm Discharge Date: Oct 15, 2016 Admitting Diagnosis diarrhea (1) Sepsis Diagnosis: Principal Plan: Sepsis due to acute appendicitis Patient tachycardic to 106 with a white blood cell count of 17.2. Lactic acid 3.4. Blood cultures NGTD x2 General surgery consulted, appreciate recommendations POD 2 s/p appendectomy Discharge home with one week of Levaquin and Flagyl, follow up with surgery in 1 week --Remove KELLY drain (2) Abdominal pain Diagnosis: Principal Plan: See above "Sepsis" Patient may also have infectious colitis as she has a history of Cryptosporidium and giardiasis Stool studies pending including C. difficile, cryptosporidium, Giardia and ova and parasites Consultants Surgery - Dr. Bustamante Procedures Appendectomy, laparoscopic - 10/13/15 Brief History 36-year-old female with a past medical history significant for bladder stimulator placement on 10/05 and a history of Cryptosporidium and Giardia presents to the emergency department with a 2 day history of nausea and frequent stools. The patient states that yesterday she began having sharp, stabbing pains diffusely throughout her abdomen was accompanied by mildly loose and frequent stools resulting in approximately 10 bowel movements yesterday. She also states that she had emesis 4 times. She denies fever but does endorse chills. The patient states that approximately 4 days ago she felt as though she had a cold with runny nose and a cough. CT of the abdomen and pelvis in the emergency department showed a mildly dilated appendix. On exam, the patient was found to have rebound tenderness. White blood cell count 17.2, lactic acid 3.4. Of note, the patient moved from [facility] in March of this year. CBC/BMP: 10/15/16 0400 10/15/16 0400 Significant Findings Laboratory Tests Test 10/13/16 10/13/16 10/13/16 10/14/16 10:40 11:30 12:25 05:35 White Blood Count 17.2 TH/MM3 12.1 TH/MM3 (4.0-11.0) (4.0-11.0) Neutrophils (%) (Auto) 79.7 % 81.7 % (16.0-70.0) (16.0-70.0) Neutrophils # (Auto) 13.7 TH/MM3 9.9 TH/MM3 (1.8-7.7) (1.8-7.7) Monocytes # (Auto) 1.0 TH/MM3 (0-0.9) Calcium Level 8.0 MG/DL 7.4 MG/DL (8.5-10.1) (8.5-10.1) Total Protein 6.2 GM/DL 5.2 GM/DL (6.4-8.2) (6.4-8.2) Albumin 3.1 GM/DL 2.4 GM/DL (3.4-5.0) (3.4-5.0) Lipase 64 U/L (73-393) Lactic Acid Level 3.4 mmol/L (0.4-2.0) Red Blood Count 3.24 MIL/MM3 (4.00-5.30) Hemoglobin 9.7 GM/DL (11.6-15.3) Hematocrit 29.6 % (35.0-46.0) Platelet Count 133 TH/MM3 (150-450) Aspartate Amino Transf 14 U/L (15-37) (AST/SGOT) Alkaline Phosphatase 41 U/L (45-117) Test 10/14/16 10/15/16 10:29 04:00 Troponin I LESS THAN 0.02 NG/ML (0.02-0.05) Red Blood Count 3.29 MIL/MM3 (4.00-5.30) Hemoglobin 10.0 GM/DL (11.6-15.3) Hematocrit 29.9 % (35.0-46.0) Platelet Count 138 TH/MM3 (150-450) Neutrophils (%) (Auto) 85.0 % (16.0-70.0) Lymphocytes (%) (Auto) 7.8 % (9.0-44.0) Lymphocytes # (Auto) 0.7 TH/MM3 (1.0-4.8) Potassium Level 3.2 MEQ/L (3.5-5.1) Chloride Level 108 MEQ/L (98-107) Blood Urea Nitrogen 6 MG/DL (7-18) Random Glucose 116 MG/DL (74-106) Calcium Level 7.9 MG/DL (8.5-10.1) Phosphorus Level 1.3 MG/DL (2.5-4.9) Aspartate Amino Transf 41 U/L (15-37) (AST/SGOT) Alkaline Phosphatase 123 U/L (45-117) Total Protein 5.7 GM/DL (6.4-8.2) Albumin 2.4 GM/DL (3.4-5.0) Imaging Last Impressions Chest X-Ray 10/14/16 0000 Signed Impressions: Service Date/Time: October 09:01 - CONCLUSION: Minimal left base parenchymal opacity. Quincy Cain MD Abdomen/Pelvis CT 10/13/16 1024 Signed Impressions: Service Date/Time: Thursday, October 13, 2016 11:12 - CONCLUSION: Non-definitive CT findings in the right lower quadrant. The appendix does appear to be mildly dilated. The patient also has a right ovarian cyst. Minimal nonspecific free pelvic fluid. Quincy Cain MD PE at Discharge GEN: WDWN adult white female resting comfortably in bed in NAD RESP: Unlabored breathing. CTAB, no crackles or wheezes. CV: NRRR, normal S1/S2, no MRG ABD: Soft, NDNT, NABS. Surgical incisions sites with bandaids in place, c/d/i. NEURO: Alert, awake. Grossly non-focal. Hospital Course 36 year old female with history of Giardia and Cryptosporidium infections admitted for sepsis, abdominal pain, N/V, loose stools found to have acute appendicitis. Improved after surgery, cleared to go home with oral antibiotics and outpatient follow up. Stool studies pending on discharge to be followed up by patient's new PCP once she establishes with a provider. Referred to [facility]. Pt Condition on Discharge: Good Discharge Disposition: Discharge Home Discharge Instructions DIET: Follow Instructions for: As Tolerated, No Restrictions Activities you can perform: Regular-No Restrictions Follow up Referrals: PCP Follow-up - 2 Weeks with Liban Jang MD R1 Surgical - 1 Week with Chris Bustamante MD New Medications: Levofloxacin (Levofloxacin) 500 Mg Tab 500 MG PO DAILY Infection #7 Ref 0 TAB Metronidazole (Flagyl) 500 Mg Tab 500 MG PO TID Infection Days 7 Ref 0 TAB Continued Medications: Ondansetron Odt (Zofran Odt) 4 Mg Tab 4 MG SL Q6HR PRN Nausea/Vomiting #15 TAB Liban Jang MD R1 Oct 15, 2016 5:39 pm
--- NOTE | 2016-10-15 17:50 | HHI.FPPN ---
Subjective Remarks No acute events overnight. AFVSS. Denies CP, SOB. Mild abdominal pain but has not needed pain medication. No diarrhea. Objective Vitals Vital Signs Date Time Temp Pulse Resp B/P Pulse Ox O2 Delivery O2 Flow Rate FiO2 10/15/16 16:00 98.7 93 16 123/74 99 10/15/16 11:51 98.2 90 16 109/68 96 10/15/16 08:00 97.1 90 17 111/68 94 10/15/16 06:09 18 10/15/16 04:00 96.0 60 98/57 94 10/15/16 00:00 97.2 99 20 108/60 98 10/15/16 00:00 97.3 99 20 108/60 98 10/14/16 20:00 97.3 94 21 119/59 100 I/O 10/14/16 10/14/16 10/14/16 10/15/16 10/15/16 10/15/16 07:00 15:00 23:00 07:00 15:00 23:00 Intake Total 930 ml 2039 ml 816 ml 1061 ml 932 ml Output Total 530 ml 600 ml 30 ml 850 ml 10 ml Balance 400 ml 1439 ml 786 ml 211 ml 922 ml Intake Oral 1200 ml 240 ml IV Total 930 ml 839 ml 576 ml 1061 ml 932 ml Output Urine Total 480 ml 550 ml 850 ml Drainage Total 50 ml 50 ml 30 ml 10 ml # Voids 1 # Bowel Movements 0 0 Result Diagram: 10/15/16 0400 10/15/16 0400 Imaging Last Impressions Chest X-Ray 10/14/16 0000 Signed Impressions: Service Date/Time: October 09:01 - CONCLUSION: Minimal left base parenchymal opacity. Quincy Cain MD Abdomen/Pelvis CT 10/13/16 1024 Signed Impressions: Service Date/Time: Thursday, October 13, 2016 11:12 - CONCLUSION: Non-definitive CT findings in the right lower quadrant. The appendix does appear to be mildly dilated. The patient also has a right ovarian cyst. Minimal nonspecific free pelvic fluid. Quincy Cain MD Objective Remarks GEN: WDWN adult white female resting comfortably in bed in NAD RESP: Unlabored breathing. CTAB, no crackles or wheezes. CV: NRRR, normal S1/S2, no MRG ABD: Soft, NDNT, NABS. Surgical incisions sites with bandaids in place, c/d/i. NEURO: Alert, awake. Grossly non-focal. Procedures Appendectomy, laparoscopic - 10/13/15 Medications and IVs Current Medications Medications (Trade) Dose Ordered Sig/Shelia Route Start Time Stop Time Status Last Admin (NS 1000 ml Inj) 1,000 ml @ 100 mls/hr Q10H IV 10/13/16 15:00 10/15/16 17:02 (NS Flush) 2 ml UNSCH PRN FLUSH 10/13/16 14:30 (NS Flush) 2 ml BID FLUSH 10/13/16 21:00 (Zofran Inj) 4 mg Q6H PRN IVP 10/13/16 14:30 10/15/16 08:41 Naloxone HCl 0.4 mg 0.4 mg UNSCH PRN IV 10/13/16 14:30 Ciprofloxacin/ Dextrose 200 ml @ 200 mls/hr Q12H IV 10/14/16 00:00 10/15/16 11:54 (Flagyl 500 Mg Inj) 100 ml @ 100 mls/hr Q6H IV 10/13/16 20:00 10/15/16 14:31 (Morphine Inj) 4 mg Q3H PRN IV PUSH 10/13/16 15:00 10/14/16 08:56 (Toradol Inj) 30 mg Q6HR IV PUSH 10/13/16 18:00 10/18/16 17:59 10/15/16 17:27 (Keyonna-Colace) 2 tab HS PO 10/14/16 21:00 10/14/16 19:34 (Lactinex) 1 tab Q12HR PO 10/14/16 21:00 10/15/16 08:41 A/P Assessment and Plan 36-year-old female with bladder stimulator implantation 8 days ago presents to the emergency department with a 2 day history of abdominal pain, emesis and frequent mildly loose stools. 1. Sepsis due to acute appendicitis Patient tachycardic to 106 with a white blood cell count of 17.2. Lactic acid 3.4. Blood cultures NGTD x2 General surgery consulted, appreciate recommendations POD 2 s/p appendectomy Discharge home with one week of Levaquin and Flagyl, follow up with surgery in 1 week --Remove KELLY drain 2. Abdominal pain with frequent loose stools and emesis See above "Sepsis" Patient may also have infectious colitis as she has a history of Cryptosporidium and giardiasis Stool studies pending including C. difficile, cryptosporidium, Giardia and ova and parasites 3. Postoperative from bladder stimulator placement 10 days ago. Patient states she feels her stimulator is working well and she is not having any difficulties with urination. Simulator was placed by Dr. Baires at [facility]. 4. FEN Normal saline at 100 cc/hour Diet: Advance to regular basic per surgery Electrolytes: replete when necessary DVT prophylaxis: SCDs until confirmed the patient is not surgical candidate Discharge Planning Home today after removal of KELLY drain Problem List: (1) Sepsis Status: Resolved (2) Abdominal pain Status: Resolved (3) Emesis Status: Resolved (4) Loose stools Status: Resolved Problem Qualifiers (1) Sepsis: Qualified Code: A41.9 - Sepsis, due to unspecified organism Liban Jang MD R1 Oct 15, 2016 5:50 pm Liban Jang MD R1 Oct 15, 2016 5:50 pm
== END 2016-10-15 18:43 | disposition home or self-care (01) | DRG 853 ==
LOC: NEPE 10:08 → NEDA 13:22 → N07A 18:48
PROVIDERS: ADMIT Family Medicine; ATTEND Family Medicine
PROC: 0DBH4ZZ Excision of Cecum, Percutaneous Endoscopic Approach (ICD-10-PCS; 2016-10-13)
PROC: 0DTJ4ZZ Resection of Appendix, Percutaneous Endoscopic Approach (ICD-10-PCS; principal; 2016-10-13 15:55)
DX: A41.9 Sepsis, unspecified organism (principal); K35.2 Acute appendicitis with generalized peritonitis; D25.9 Leiomyoma of uterus, unspecified; J45.909 Unspecified asthma, uncomplicated; R32 Unspecified urinary incontinence; N81.4 Uterovaginal prolapse, unspecified; R65.20 Severe sepsis without septic shock; D64.9 Anemia, unspecified; Z88.9 Allergy status to unspecified drugs, medicaments and biological substances
CPT/HCPCS: 71010; 74177; 80053; 81001; 83605; 83690; 83735; 84100; 84484; 84703; 85025; 87040; 87205; 87328; 87329; 87493; 87506; 88304; 93005; 94150; 96361; 96365; 96375; J0131; J0744; J1885; J2250; J2270; J2370; J2405; J2710; J3010; J7030; J7120; Q9967